=== PATIENT | female | born 1965 | race African-American/Black ===

== ENCOUNTER 2025-01-05 14:37 | Outpatient (CLI) | payer BC, OTHER | END 2025-01-05 14:38 | disposition home or self-care (01) | LOC: CSHMAMMO 14:37 | PROVIDERS: ATTEND Internal Medicine | DX: N63.21 Unspecified lump in the left breast, upper outer quadrant (principal); R59.0 Localized enlarged lymph nodes | CPT/HCPCS: 77066; G0279 ==

== ENCOUNTER → 2025-01-15 | Day surgery (SDC) | payer BC | LOC: CSHULT 11:33 | PROC: 07B60ZX Excision of Left Axillary Lymphatic, Open Approach, Diagnostic (ICD-10-PCS; principal; 2025-01-15) | DX: C50.412 Malignant neoplasm of upper-outer quadrant of left female breast (principal); C77.3 Secondary and unspecified malignant neoplasm of axilla and upper limb lymph nodes; Z17.0 Estrogen receptor positive status [ER+]; Z17.21 Progesterone receptor positive status; Z17.32 Human epidermal growth factor receptor 2 negative status | CPT/HCPCS: 19083; 19084; 38505; 76942; 88305; 88341; 88342; 88360; A4648 ==